=== PATIENT | male | born 1940 | race Caucasian/White ===

== ENCOUNTER 2016-11-23 17:24 | Outpatient (CLI) | payer MEDICARE, OTHER | END 2016-11-23 17:25 | disposition short-term general hospital (02) | LOC: EMS 17:24 | PROVIDERS: ATTEND Surgery | DX: R07.9 Chest pain, unspecified (principal); R11.10 Vomiting, unspecified | CPT/HCPCS: A0425; A0427 ==

== ENCOUNTER 2018-01-09 08:00 | Outpatient (CLI) | payer MEDICARE, OTHER ==
[2018-01-09 19:01] LABS: BASOPHILS % (AUTO) 0.5 %; EOSINOPHILS % (AUTO) 0.8 %; HGB - HEMOGLOBIN 14.4 g/dL (14.0-18.0); LYMPHOCYTES # (AUTO) 1.1 10^3/uL (1.5-3.5); LYMPHOCYTES % (AUTO) 23.6 %; MEAN CORPUSCULAR HGB CONC 34.1 g/dL (32.0-36.0); MEAN CORPUSCULAR VOLUME 102.8 fL (80.0-94.0); MEAN PLATELET VOLUME 8.4 fL (7.4-11.4); MONOCYTES # (AUTO) 0.4 10^3/uL (0.0-1.0); MONOCYTES % (AUTO) 9.7 %; NEUTROPHILS # (AUTO) 2.9 10^3/uL (1.5-6.6); NEUTROPHILS % (AUTO) 65.4 %; PLT - PLATELET COUNT 168 10^3/uL (130-450); RED BLOOD COUNT 4.12 10^6/uL (4.70-6.10); RED CELL DISTRIBUTION WIDTH 12.6 % (12.0-15.0); WHITE BLOOD COUNT 4.5 x10^3/uL (4.8-10.8)
[2018-01-09 19:22] LABS: PSA FREE 0.072 ng/mL (0.16-2.81)
[2018-01-09 19:23] LABS: PSA TOTAL 0.393 ng/mL (0.000-2.000)
[2018-01-09 19:29] LABS: ALBUMIN 3.9 g/dL (3.2-5.5); ALBUMIN/GLOBULIN RATIO 1.2 (1.0-2.2); ALKALINE PHOSPHATASE 65 IU/L (42-121); ALT ALANINE AMINOTRANSFERASE 33 IU/L (10-60); AST ASPARTATE AMINOTRANSFERASE 32 IU/L (10-42); BUN - BLOOD UREA NITROGEN 21 mg/dL (6-20); CALCIUM 9.1 mg/dL (8.5-10.3); CARBON DIOXIDE - CO2 28 mmol/L (21-32); CHLORIDE 103 mmol/L (101-111); CHOL/HDL RATIO 2.9 (<5.0); CHOLESTEROL 174 mg/dL; GFR - MDRD 72 (>89); GLUCOSE 91 mg/dL (70-100); HDL CHOLESTEROL 61 mg/dL; SODIUM 137 mmol/L (135-145); TOTAL PROTEIN 7.1 g/dL (6.7-8.2)
[2018-01-09 19:51] LABS: LDL CHOLESTEROL,DIRECT 100 mg/dL; LDLD/HDL RATIO 1.6 (<3.6)
[2018-01-10 08:17] LABS: HEPATITIS B SURFACE ANTIGEN NON-REACTIVE (NON-REACTIVE)
== END 2018-01-09 08:01 | disposition home or self-care (01) ==
LOC: LAB.N 08:00
PROVIDERS: ATTEND Family Medicine
DX: N40.0 Benign prostatic hyperplasia without lower urinary tract symptoms (principal); I49.5 Sick sinus syndrome; B19.10 Unspecified viral hepatitis B without hepatic coma; Z80.52 Family history of malignant neoplasm of bladder
CPT/HCPCS: 36415; 80053; 80061; 83721; 84154; 84443; 85025; 86317; 86704; 87340

== ENCOUNTER 2018-01-12 12:00 | Outpatient (CLI) | payer MEDICARE, OTHER ==
[2018-01-12 19:00] LABS: BILIRUBIN,URINE NEGATIVE (NEGATIVE); GLUCOSE, URINE (UA) NEGATIVE (NEGATIVE); KETONES,URINE (UA) NEGATIVE (NEGATIVE); LEUKOCYTE ESTERASE, URINE NEGATIVE (NEGATIVE); NITRITE,URINE NEGATIVE (NEGATIVE); OCCULT BLOOD,URINE NEGATIVE (NEGATIVE); PH,URINE 6.5 PH (5.0-7.5); PROTEIN,URINE NEGATIVE (NEGATIVE); UROBILINOGEN,URINE 0.2 (NORMAL) E.U./dL (NORMAL)
[2018-01-12 19:06] LABS: CLARITY,URINE CLEAR (CLEAR)
[2018-01-12 19:23] LABS: BACTERIA,URINE None Seen /HPF (None Seen); RBC,URINE None Seen /HPF (0-5); SQUAMOUS EPITHELIAL CELL,UR NONE SEEN (<= Few)
== END 2018-01-12 12:01 | disposition home or self-care (01) ==
LOC: LAB.N 12:00
PROVIDERS: ATTEND Family Medicine
DX: Z80.52 Family history of malignant neoplasm of bladder (principal); R30.0 Dysuria
CPT/HCPCS: 81001

== ENCOUNTER 2018-08-22 14:39 | Outpatient (CLI) | payer MEDICARE, OTHER ==
[2018-08-22 15:01] LABS: BASOPHILS % (AUTO) 0.7 %; EOSINOPHILS % (AUTO) 0.9 %; HGB - HEMOGLOBIN 14.2 g/dL (14.0-18.0); LYMPHOCYTES # (AUTO) 1.4 10^3/uL (1.5-3.5); LYMPHOCYTES % (AUTO) 29.1 %; MEAN CORPUSCULAR HEMOGLOBIN 34.2 pg (27.0-31.0); MEAN CORPUSCULAR HGB CONC 33.9 g/dL (32.0-36.0); MEAN CORPUSCULAR VOLUME 100.9 fL (80.0-94.0); MEAN PLATELET VOLUME 7.5 fL (7.4-11.4); MONOCYTES # (AUTO) 0.6 10^3/uL (0.0-1.0); MONOCYTES % (AUTO) 12.4 %; NEUTROPHILS # (AUTO) 2.7 10^3/uL (1.5-6.6); NEUTROPHILS % (AUTO) 56.9 %; PLT - PLATELET COUNT 162 10^3/uL (130-450); RED BLOOD COUNT 4.16 10^6/uL (4.70-6.10); RED CELL DISTRIBUTION WIDTH 12.8 % (12.0-15.0); WHITE BLOOD COUNT 4.7 x10^3/uL (4.8-10.8)
[2018-08-22 15:04] LABS: INR 1.2 (0.8-1.2); PT - PROTHROMBIN TIME 13.7 secs (9.9-12.6)
[2018-08-22 15:09] LABS: CALCIUM 9.1 mg/dL (8.5-10.3)
== END 2018-08-22 14:40 | disposition home or self-care (01) ==
LOC: LAB 14:39
PROVIDERS: ATTEND Internal Medicine
DX: T82.110A Breakdown (mechanical) of cardiac electrode, initial encounter (principal); I49.5 Sick sinus syndrome
CPT/HCPCS: 36415; 80048; 85025; 85610

== ENCOUNTER 2019-01-31 09:49 | Outpatient (CLI) | payer MEDICARE, OTHER ==
--- NOTE | 2019-02-01 09:02 | XRAY Report ---
Reason: productive cough, fatigue Procedure Date: 01/31/2019 Accession Number: [id number] / [id number] Procedure: XRN - Chest 2 View X-Ray CPT Code: 13838 FULL RESULT: EXAM: CHEST RADIOGRAPHY EXAM DATE: 01/31/2019 10:09 AM. CLINICAL HISTORY: Productive cough, fatigue. COMPARISON: PCXR 06/07/2007 9:40 AM CHEST X-RAY 12/07/2005 8:08 AM. TECHNIQUE: 2 views. FINDINGS: Lungs/Pleura: No focal opacities evident. No pleural effusion. No pneumothorax. Normal volumes. Mediastinum: Heart and mediastinal contours are unremarkable. Other: Cardiac pacer right chest with distal wire tips at the right atrium and right ventricular apex. IMPRESSION: No acute consolidations identified. RADIA
== END 2019-01-31 09:50 | disposition home or self-care (01) ==
LOC: DI.N 09:49
PROVIDERS: ATTEND Physician Assistant Medical
DX: R05 Cough (principal); R53.83 Other fatigue
CPT/HCPCS: 71046

== ENCOUNTER 2019-08-26 11:54 | Outpatient (CLI) | payer MEDICARE, OTHER | END 2019-08-26 23:59 | disposition short-term general hospital (02) | LOC: EMS 11:54 | PROVIDERS: ATTEND Surgery | DX: R42 Dizziness and giddiness (principal); R53.83 Other fatigue | CPT/HCPCS: A0425; A0429 ==

== ENCOUNTER 2021-07-09 14:44 | Outpatient (CLI) | payer MEDICARE, OTHER ==
[2021-07-09 18:10] LABS: ALBUMIN 4.1 g/dL (3.2-5.5); CALCIUM 9.4 mg/dL (8.5-10.3); CREATININE 1.3 mg/dL (0.6-1.2); PHOSPHORUS 3.3 mg/dL (2.5-4.6); POTASSIUM 4.4 mmol/L (3.5-5.0)
== END 2021-07-09 14:45 | disposition home or self-care (01) ==
LOC: LAB.N 14:44
PROVIDERS: ATTEND Internal Medicine Cardiovascular Disease
DX: I42.0 Dilated cardiomyopathy (principal)
CPT/HCPCS: 36415; 80069

== ENCOUNTER 2021-10-07 08:00 | Outpatient (CLI) | payer MEDICARE, OTHER ==
--- NOTE | 2021-10-07 19:41 | XRAY Report ---
PROCEDURE: Ankle 3 View LT INDICATIONS: LEFT ANKLE SPRAIN TECHNIQUE: 3 views of the ankle were acquired. COMPARISON: None FINDINGS: Bones: No fractures or dislocations. Ankle mortise is normally aligned. Well-defined plantar and d orsal calcaneal enthesophytes are seen. No suspicious bony lesions. Soft tissues: Soft tissue swelling over lateral malleolus is seen. No tibiotalar joint effusion. Ac hilles tendon appears normal. IMPRESSION: No gross acute ankle fracture or dislocation. Soft tissue swelling over lateral malleolu s. Well-defined calcaneal enthesophytes. Reviewed by: Ulises Mckeon MD on 10/07/2021 7:40 PM PDT Approved by: Ulises Mckeon MD on 10/07/2021 7:40 PM PDT Station ID: [id number]
== END 2021-10-07 23:59 | disposition home or self-care (01) ==
LOC: DI.N 08:00
PROVIDERS: ATTEND Family Medicine
DX: S93.492A Sprain of other ligament of left ankle, initial encounter (principal); M77.32 Calcaneal spur, left foot

== ENCOUNTER 2021-10-22 10:47 | Outpatient (CLI) | payer MEDICARE, OTHER ==
[2021-10-22 18:48] LABS: CALCIUM 9.4 mg/dL (8.5-10.3); CREATININE 1.5 mg/dL (0.6-1.2); POTASSIUM 4.8 mmol/L (3.5-5.0)
== END 2021-10-22 10:48 | disposition home or self-care (01) ==
LOC: DI.N 10:47 → LAB.N 10:48
PROVIDERS: ATTEND Internal Medicine
DX: I49.5 Sick sinus syndrome (principal); I42.0 Dilated cardiomyopathy; Z95.0 Presence of cardiac pacemaker
CPT/HCPCS: 36415; 80048

== ENCOUNTER 2023-07-19 11:33 | Outpatient (CLI) | payer MEDICARE, OTHER ==
--- NOTE | 2023-07-19 12:35 | XRAY Report ---
PROCEDURE: Shoulder 2+V RT INDICATIONS: PAIN IN RIGHT SHOULDER TECHNIQUE: 3 views of the shoulder were acquired. COMPARISON: None. FINDINGS: Bones: No fractures or dislocations. No suspicious bony lesions. Visualized ribs appear intact. Glenohumeral and acromioclavicular joint space narrowing with associated osteophytosis. Soft tissues: No suspicious soft tissue calcifications. The visualized lungs are within normal limi ts. IMPRESSION: No acute bony abnormality. Moderate shoulder osteoarthritis. Reviewed by: Lm Lees MD on 07/19/2023 12:34 PM PDT Approved by: Lm Lees MD on 07/19/2023 12:34 PM PDT Station ID: [id number]
--- NOTE | 2023-07-19 12:36 | XRAY Report ---
PROCEDURE: Wrist 3+V RT INDICATIONS: OTHER SPECIFIED SPRAIN OF RIGHT WRIST TECHNIQUE: 3 views of the wrist were acquired. COMPARISON: None. FINDINGS: Bones: No fractures or dislocations. No suspicious bony lesions. Soft tissues: No suspicious soft tissue calcifications or masses. IMPRESSION: No acute bony abnormality. Reviewed by: Lm Lees MD on 07/19/2023 12:35 PM PDT Approved by: Lm Lees MD on 07/19/2023 12:35 PM PDT Station ID: [id number]
== END 2023-07-19 11:34 | disposition home or self-care (01) ==
LOC: DI.N 11:33
PROVIDERS: ATTEND Physician Assistant Medical
DX: M19.011 Primary osteoarthritis, right shoulder (principal); S63.591A Other specified sprain of right wrist, initial encounter

== ENCOUNTER 2023-09-22 08:14 | Outpatient (CLI) | payer MEDICARE, OTHER ==
[2023-09-22 12:23] LABS: BASOPHILS % (AUTO) 0.9 %; EOSINOPHILS # (AUTO) 0.1 10^3/uL (0.0-0.7); EOSINOPHILS % (AUTO) 1.7 %; HCT - HEMATOCRIT 42.8 % (42.0-52.0); LYMPHOCYTES # (AUTO) 1.6 10^3/uL (1.5-3.5); LYMPHOCYTES % (AUTO) 33.3 %; MEAN CORPUSCULAR HGB CONC 32.7 g/dL (32.0-36.0); MEAN CORPUSCULAR VOLUME 103.9 fL (80.0-94.0); MEAN PLATELET VOLUME 10.3 fL (7.4-11.4); MONOCYTES # (AUTO) 0.6 10^3/uL (0.0-1.0); MONOCYTES % (AUTO) 13.2 %; NEUTROPHILS # (AUTO) 2.4 10^3/uL (1.5-6.6); NEUTROPHILS % (AUTO) 50.7 %; PLT - PLATELET COUNT 175 10^3/uL (130-450); RED BLOOD COUNT 4.12 10^6/uL (4.70-6.10); RED CELL DISTRIBUTION WIDTH 12.4 % (12.0-15.0); WHITE BLOOD COUNT 4.7 x10^3/uL (4.8-10.8)
[2023-09-22 12:36] LABS: ALBUMIN 3.9 g/dL (3.2-5.5); ALBUMIN/GLOBULIN RATIO 1.3 (1.0-2.2); ALKALINE PHOSPHATASE 76 IU/L (42-121); ALT ALANINE AMINOTRANSFERASE 23 IU/L (10-60); AST ASPARTATE AMINOTRANSFERASE 29 IU/L (10-42); BILIRUBIN,TOTAL 0.5 mg/dL (0.2-1.0); BUN - BLOOD UREA NITROGEN 23 mg/dL (6-20); CALCIUM 9.4 mg/dL (8.5-10.3); CARBON DIOXIDE - CO2 29 mmol/L (21-32); CHLORIDE 107 mmol/L (101-111); CHOL/HDL RATIO 2.9 (<5.0); CHOLESTEROL 171 mg/dL; CREATININE 1.4 mg/dL (0.6-1.3); GFR - MDRD 48 (>89); GLUCOSE 105 mg/dL (74-104); HDL CHOLESTEROL 58 mg/dL; LDL CHOLESTEROL,CALCULATED 105 mg/dL; LDL/HDL RATIO 1.8 (<3.6); POTASSIUM 4.4 mmol/L (3.5-4.5); SODIUM 138 mmol/L (135-145); TOTAL PROTEIN 6.8 g/dL (6.4-8.9); TRIGLYCERIDES 40 mg/dL (48-352); VLDL CHOLESTEROL 8 mg/dL
[2023-09-22 12:40] LABS: ESTIMATED AVERAGE GLUCOSE 126 mg/dL (70-100)
[2023-09-22 12:52] LABS: THYROID STIMULATING HORMONE 3.46 uIU/mL (0.34-5.60)
== END 2023-09-22 08:15 | disposition home or self-care (01) ==
LOC: LAB.N 08:14
DX: Z00.00 Encounter for general adult medical examination without abnormal findings (principal); Z79.899 Other long term (current) drug therapy; Z13.1 Encounter for screening for diabetes mellitus; Z13.220 Encounter for screening for lipoid disorders; Z13.29 Encounter for screening for other suspected endocrine disorder
CPT/HCPCS: 36415; 80053; 80061; 83036; 83721; 84443; 85025